=== PATIENT | female | born 1975 | race American Indian/Alaskan Native ===

== ENCOUNTER 2016-09-25 14:21 | Emergency (ER) | payer MEDICARE, OTHER ==
[2016-09-25 14:22] VITALS: BMI 40.7
--- NOTE | 2016-09-26 09:07 | CP.PCM.CON ---
History of Present Illness - History of Present Illness History of Present Illness: 41 y/o female seen at bedside in ED 11 days s/p left foot hammertoe repair of the 2nd digit and hallux IPJ arthrodesis. Pt states that she is having a lot of pain in her foot. Pt states that she had about 8 surgeries in her left foot previously. Pt state that she is always in pain and feels numbness, tingling and shooting type of pain. Pt states that she is currently taking oxycodone for her pain in her left foot. Pt states that she missed her 1st post-op appointment. Pt states that Dr. Chapman asked her to come to the ED yesterday afternoon. Pt denies of any trauma to the foot recently. PMHx: Heart attack x 2, lupus, HTN, pre-diabetic, Anemia, Asthma, OA, Partial ACL tear of left leg. PSHx: lymph nodes removed from behind both her ears and throat. D+C in the past and uterine fibroid removals. Cardiac catherization x 2 (mar 2011 and July 2010) with stent placed. Previous broken tib-fib of left lower extremity with jean carlos placement 2013 after miss step. Allergies: Nitroglycerine, Seafood Review of Systems - Constitutional Constitutional: As Per HPI Past Patient History - Infectious Disease Hx of Infectious Diseases: None - Past Medical History & Family History Past Medical History?: Yes - Past Social History Smoking Status: Never Smoked - CARDIAC Hx Cardiac Disorders: Yes Hx Angina: Yes Hx Circulatory Problems: Yes Hx Heart Attack: Yes (IN 2010 AND 2011) Hx Hypercholesterolemia: Yes Hx Hypertension: Yes Hx Peripheral Edema: Yes (left leg) Other/Comment: Myocardiovascular disease - PULMONARY Hx Respiratory Disorders: Yes Hx Asthma: Yes - NEUROLOGICAL Hx Neurological Disorder: Yes Hx Transient Ischemic Attacks (TIA): Yes (10 years ago) - HEENT Hx HEENT Problems: Yes (seasonal allergies) - RENAL Hx Chronic Kidney Disease: No - ENDOCRINE/METABOLIC Hx Endocrine Disorders: Yes Hx Diabetes Mellitus Type 2: Yes (NOT ON ANY MEDICINE) Hx Systemic Lupus Erythematosus: Yes - HEMATOLOGICAL/ONCOLOGICAL Hx Blood Disorders: Yes Hx Anemia: Yes Hx Blood Transfusions: Yes Hx Blood Transfusion Reaction: No - INTEGUMENTARY Hx Dermatological Problems: No - MUSCULOSKELETAL/RHEUMATOLOGICAL Hx Musculoskeletal Disorders: Yes Hx Arthritis: Yes Hx Back Pain: Yes Hx Degenerative Joint Disease: Yes Hx Fractures: Yes (left tibia fibula ankle replacement left) Hx Herniated Disk: Yes (LUMBAR-EPIDURALS DONE-LAST MAY 2015) Other/Comment: PARTIAL ACL LEFT KNEE-SYNOVOSIS LEFT KNEE-NO SURGERY DONE - GASTROINTESTINAL Hx Gastrointestinal Disorders: No - GENITOURINARY/GYNECOLOGICAL Hx Genitourinary Disorders: Yes Hx Incontinence: Yes (bladder lift) Hx Reproductive Disorders: Yes Other/Comment: CYST ON OVARIES REMOVED. FIBROID IN UTERUS REMOVED - PSYCHIATRIC Hx Psychophysiologic Disorder: Yes Hx Anxiety: Yes - SURGICAL HISTORY Hx Surgeries: Yes Hx Cardiac Catheterization: Yes (may 2015) Hx Dilation and Curettage: Yes (APR 2014) Hx Joint Replacement: Yes (left ankle) Hx Open Reduction Internal Fixation: Yes (LEFT TIBIA FIBULA ) Hx Tubal Ligation: Yes Other/Comment: I/D LEFT ANKLE WOUND, EXC CYSTS NECK SCALP EAR, LAPAROSCOPIC REMOVAL UTERINE FIBROIDS. achilles tendo lengthening - ANESTHESIA Hx Anesthesia: Yes Hx Anesthesia Reactions: Yes (nausea) Hx Malignant Hyperthermia: No Meds Allergies/Adverse Reactions: Allergies Allergy/AdvReac Type Severity Reaction Status Date / Time almond Allergy Intermediate ITCHING Verified 06/07/16 12:33 nitroglycerin Allergy Intermediate VOMITING Verified 06/07/16 12:33 AND ITCHING shellfish derived Allergy Intermediate SWELLING Verified 06/07/16 12:33 strawberry Allergy Intermediate ITCHING Verified 06/07/16 12:33 CAT HAIR Allergy Intermediate ITCHING Uncoded 06/07/16 12:33 Dog Allergy Intermediate ITCHING Uncoded 06/07/16 12:33 dust mites Allergy Intermediate ITCHING Uncoded 06/07/16 12:33 FRINGE TREE Allergy Intermediate ITCHING Uncoded 06/07/16 12:33 House Dust Allergy Intermediate ITCHING Uncoded 06/07/16 12:33 peas Allergy Intermediate ITCHING Uncoded 06/07/16 12:33 SHORT RAGWEED Allergy Intermediate ITCHING Uncoded 06/07/16 12:33 Physical Exam - Constitutional Appears: Well, Non-toxic, No Acute Distress - Extremities Exam Additional comments: VASC: DP/PT pulses are palpable b/l, BARREL RIFLER: < 3 sec x 10, TG: warm to cool, mild non-pitting edema noted DERM: surgical site is coapted with no dehiscence, sutures are intact, no open lesion, K-wire in the 2nd digit is intact, no erythema, no active drainage, no malodor, no active signs of infection noted NEURO: Grossly diminished ORTHO: Tenderness on palpation of surgical site as well as left foot - Neurological Exam Neurological exam: Alert, Oriented x3 - Psychiatric Exam Psychiatric exam: Normal Affect, Normal Mood Assessment & Plan - Assessment and Plan (Free Text) Assessment: 41 y/o female seen at bedside in ED 11 days s/p left foot hammertoe repair of the 2nd digit and hallux IPJ arthrodesis. Plan: Pt evaluated and chart reviewed Pt discussed in details with attending Dr. Chapman Surgical site cleaned with saline and dressed with triple abx, gauze, and kurlix Pt educated to weightbear to L foot in surgical shoe Pt given PO abx as per ED Pt educated to follow up with Dr. Chapman in her clinic on Tuesday Pt demonstrated verbal understanding - Date & Time Date: 09/25/16 Time: 15:00
--- NOTE | 2016-09-27 16:51 | RAD ---
PROCEDURE: Left ankle dated the 09/25/2016 HISTORY: Trauma COMPARISON: Comparison made with prior radiographs left ankle 12/01/2015 FINDINGS: BONES: The current study re- demonstrates left ankle arthroplasty. Metallic prostheses appear intact and remain satisfactorily aligned. There is a less than 2 mm gap between the distal tibial component and the distal tibial bone margin which at this time is not felt to represent loosening or infection. Re- demonstrated are deformities of the fibula as well as distal fibula likely old healed fractures. There appears to be incomplete fusion of the distal tibia and fibula. . Residual screw holes felt be present traversing the tibia metaphysis of chest cephalad to the fixation hardware. Posterior calcaneal enthesophyte. JOINTS: As above SOFT TISSUES: Mild medial soft tissue swelling. OTHER FINDINGS: None. IMPRESSION: Stable postoperative changes of left ankle arthroplasty as described. No evidence of loosening or infection. . There may be some mild medial soft tissue swelling
--- NOTE | 2016-09-27 17:01 | RAD ---
PROCEDURE: Left foot dated 09/25/2016. History: Trauma. Three standard views left foot performed HISTORY: TRAUMA COMPARISON: Correlation made with concurrent radiographs of the left ankle. Comparison also made with prior radiographs of the left foot dated 12/01/2015. FINDINGS: BONES: Re- demonstrated are postoperative changes of ankle arthroplasty which have been described in detail on concurrent ankle radiograph report. . There also has been interval resection of the distal margins of the 1st and 2nd proximal phalanges and bases of the distal phalanx great toe with compression screw traversing and fusing the distal and proximal phalanges. Surrounding soft tissue swelling. . K-wire extends through the distal middle and proximal phalanges of the 2nd digit with surrounding soft tissue swelling. JOINTS: Mild degenerative changes of the 1st MTP joint. . SOFT TISSUES: Normal. OTHER FINDINGS: None. IMPRESSION: Postoperative changes of the 1st and 2nd toes with surrounding soft tissue swelling as described. Total arthroplasty left ankle ; see concurrent ankle report for additional details
== END 2016-09-25 17:15 | disposition home or self-care (01) ==
LOC: H.ER 14:21
DX: M79.672 Pain in left foot (principal); I10 Essential (primary) hypertension; E78.00 Pure hypercholesterolemia, unspecified; M32.9 Systemic lupus erythematosus, unspecified; E11.9 Type 2 diabetes mellitus without complications

== ENCOUNTER 2016-12-14 20:52 | Emergency (ER) | payer MEDICARE, OTHER ==
[2016-12-14 20:52] VITALS: BMI 40.7
[2016-12-14 21:06] VITALS: RESP 16; TEMP 98.5
--- NOTE | 2016-12-14 21:25 | ED PDOC ---
Lower Extremity Pain/Injury Time Seen by Provider: 12/14/16 21:10 Chief Complaint (Nursing): Lower Extremity Problem/Injury Chief Complaint (Provider): ankle pain History Per: Patient History/Exam Limitations: no limitations Additional Complaint(s): 41yo F in Ed for eval of left ankle injury sustained today after injuring it on a toy chest-states that she noted acute swelling. Pt state she normally has decreased sensation to foot due to neuropathy. Pt has had surgeries to ankle in 2017. Pt states that she took oxycotcin prior to ER arrival. Pt is a pt of MD Ari who advised pt to come to ER. Pt denies SOB, CP, dizziness, weakness epigastric pain - Ankle/Foot Feet: 1 - swelling - Risk Factors DVT Risk Factors: Pos: None Past Medical History Reviewed: Historical Data, Nursing Documentation, Vital Signs Vital Signs: Last Vital Signs Temp 98.5 F 12/14/16 21:01 Pulse 86 12/14/16 21:01 Resp 16 12/14/16 21:01 BP 205/117 H 12/14/16 21:01 Pulse Ox 100 12/14/16 21:01 - Medical History PMH: Anemia, Anxiety, Arthritis, Asthma, Fractures (left tibia fibula ankle replacement left), HTN, Hypercholesterolemia, Peripheral Edema (left leg), TIA ( 10 years ago) Denies: Chronic Kidney Disease - Family History Family History: States: Unknown Family Hx - Immunization History Hx Tetanus Toxoid Vaccination: Yes Hx Influenza Vaccination: Yes (01/2015) Hx Pneumococcal Vaccination: Yes - Home Medications Home Medications: Ambulatory Orders Medication Instructions Recorded Alprazolam [Alprazolam Xr] 2 mg PO BID #0 07/02/14 Cetirizine HCl [Zyrtec Allergy] 10 mg PO HS #0 07/02/14 Clonidine HCl [Clonidine HCl ER] 0.5 mg PO TID 07/02/14 Clopidogrel [Plavix] 75 mg PO DAILY 07/02/14 Albuterol/Ipratropium [Combivent 1 puff IH DAILY 07/09/15 Respimat] Aspirin [[place] Aspirin] 81 mg PO DAILY 07/09/15 Cholecalciferol (Vitamin D3) 50,000 unit PO QWK 07/09/15 [Vitamin D3] Furosemide [Lasix] 40 mg PO BID 07/09/15 Gabapentin 600 mg PO TID 07/09/15 Losartan Potassium [Cozaar] 100 mg PO DAILY 07/09/15 Omeprazole [Prilosec] 20 mg PO DAILY 07/09/15 Atenolol [Tenormin] 50 mg PO BID #0 07/16/15 Labetalol [Trandate] 200 mg PO BID #20 tab 09/17/15 Albuterol HFA [Ventolin HFA 90 2 puff IH QID PRN 10/16/15 mcg/actuation (8 g)] amLODIPine [Norvasc] 10 mg PO DAILY 10/11/16 Albuterol HFA [Ventolin HFA 90 2 puff IH Q4 PRN 10/12/16 mcg/actuation (8 g)] Albuterol/Ipratropium [Combivent 1 puff IH 10/12/16 Respimat] Diltiazem HCl [Cardizem] 30 mg PO DAILY 10/12/16 Docusate Sodium 100 mg PO BID 10/12/16 Epinephrine [Epipen] 0.3 mg IJ PRN PRN 10/12/16 Multivitamin [Multi-Vitamin Daily] 1 each PO DAILY 10/12/16 Ondansetron [Zofran] 4 mg PO PRN PRN 10/12/16 Oxycodone HCl [Oxycodone HCl] 5 mg PO PRN PRN 10/12/16 metFORMIN [glucOPHAGE] 500 mg PO PRN PRN 10/12/16 predniSONE [predniSONE Tab] 5 mg PO PRN PRN 10/12/16 tiZANidine [Zanaflex] 4 mg PO BID 10/12/16 - Allergies Allergies/Adverse Reactions: Allergies Allergy/AdvReac Type Severity Reaction Status Date / Time almond Allergy Intermediate ITCHING Verified 06/07/16 12:33 nitroglycerin Allergy Intermediate VOMITING Verified 06/07/16 12:33 AND ITCHING shellfish derived Allergy Intermediate SWELLING Verified 06/07/16 12:33 strawberry Allergy Intermediate ITCHING Verified 06/07/16 12:33 CAT HAIR Allergy Intermediate ITCHING Uncoded 06/07/16 12:33 Dog Allergy Intermediate ITCHING Uncoded 06/07/16 12:33 dust mites Allergy Intermediate ITCHING Uncoded 06/07/16 12:33 FRINGE TREE Allergy Intermediate ITCHING Uncoded 06/07/16 12:33 House Dust Allergy Intermediate ITCHING Uncoded 06/07/16 12:33 peas Allergy Intermediate ITCHING Uncoded 06/07/16 12:33 SHORT RAGWEED Allergy Intermediate ITCHING Uncoded 06/07/16 12:33 Wells Criteria for PE - Wells Criteria for Pulmonary Embolism Clinical Signs and Symptoms of DVT: No P.E is #1 Diagnosis, or Equally Likely: No Heart Rate >100: No Immobilization at least 3 days;Surgery previous 4 weeks: No Previous, objectively diagnosed PE or DVT: No Hemoptysis: No Malignancy w/treatment within 6 months, or palliative: No Total Score: 0 Review of Systems ROS Statement: Except As Marked, All Systems Reviewed And Found Negative Musculoskeletal: Positive for: Foot Pain Physical Exam - Reviewed Nursing Documentation Reviewed: Yes Vital Signs Reviewed: Yes - Physical Exam Appears: Positive for: Non-toxic, No Acute Distress, Uncomfortable Head Exam: Positive for: ATRAUMATIC, NORMAL INSPECTION, NORMOCEPHALIC Skin: Positive for: Normal Color, Warm, DRY Cardiovascular/Chest: Positive for: Regular Rate, Rhythm Respiratory: Positive for: CNT, Normal Breath Sounds Extremity: Positive for: Other (lef tfoot: swelling noted. no erythema noted. ) Neurologic/Psych: Positive for: Alert, Oriented - ECG O2 Sat by Pulse Oximetry: 100 - Radiology X-Ray: Interpreted by Me (hardware in place. no acute fractures noted. ) Medical Decision Making Medical Decision Making: pt offered ultram, declined. states only Dilaudid IV works. [facility] reviewed: pt has hx of narcotic use Rx by MD Ari pt given morphine IV 2mg initially to help with pain, considering pt took narcotic prior to ED arrival. Pt with normal HR and presents very relaxed and not in acute distress. request for Dilaudid does not match presenting need for pain control. podiatry consulted consulted MD Ari pt given Kraus compression and have f/u with pmd. BP improving while in ER. however still elevated. Pt will be given clondine 2mg and re-eval. Pt not exhibiting any signs of CVA like symptoms-no CP, SOB, BL[place], vision changes , UE weakness/numbness. Pt BP still elevated diastolic and and worsened systolic will give morphine 4mg. pt now c/o of nausea will order zofran. again, pt is calm not in acute distress at this time. Pt will have podiatry f.u on . BP improved to 163/73 Vital Signs - 24 hr 12/14/16 12/14/16 12/14/16 21:01 21:48 23:10 Temperature 98.5 F Pulse Rate 86 90 90 Respiratory 16 16 16 Rate Blood Pressure 205/117 H 191/109 H 181/112 H O2 Sat by Pulse 100 98 Oximetry 12/14/16 12/14/16 23:16 23:30 Temperature Pulse Rate 84 Respiratory 16 Rate Blood Pressure 163/73 H O2 Sat by Pulse 100 100 Oximetry Disposition - Clinical Impression Clinical Impression: Ankle pain - Patient ED Disposition Is Patient to be Admitted: No Counseled Patient/Family Regarding: Studies Performed, Diagnosis, Need For Followup - Disposition Referrals: Elena Chapman DPM [Staff Provider] - Disposition: Routine/Home Disposition Time: 23:41 Condition: STABLE Instructions: Foot Sprain (ED) Forms: [facility] ([place]z)
--- NOTE | 2016-12-14 22:04 | CP.PCM.CON ---
History of Present Illness - History of Present Illness History of Present Illness: 41 y/o female with extensive PMHx seen at bedside in ED for swelling and pain in her left foot and ankle. Patient states that she hit her foot/ankle against a dresser this evening when she was walking. Patient states that she does not have much sensation to her left lower extremity so she did not feel it a lot but did feet a shooting pain traveling up the leg after she hit it. Patient states that she feel pulsating, numbness, tingling type of pain surrounding the ankle as well as the bottom of her foot. Patient states has had about 8-9 surgeries on the left side. Patient states that she is currently on oxycodone to manage her pain. Patient states that she took one oxycodone prior to coming to the ER today. Patient denies of any other pedal complain today. Patient denies of any recent F/N/V/C/SOB/CP. PMHx: Heart attack x 2, lupus, HTN, pre-diabetic, Anemia, Asthma, OA, Partial ACL tear of left leg. PSHx: lymph nodes removed from behind both her ears and throat. D+C in the past and uterine fibroid removals. Cardiac catherization x 2 (mar 2011 and July 2010) with stent placed. Previous broken tib-fib of left lower extremity with jean carlos placement 2012 after miss step. Allergies: Nitroglycerine, Seafood Review of Systems - Constitutional Constitutional: As Per HPI Past Patient History - Infectious Disease Hx of Infectious Diseases: None - Past Medical History & Family History Past Medical History?: Yes - Past Social History Smoking Status: Never Smoked - CARDIAC Hx Hypercholesterolemia: Yes Hx Hypertension: Yes Hx Peripheral Edema: Yes (left leg) - PULMONARY Hx Asthma: Yes - NEUROLOGICAL Hx Transient Ischemic Attacks (TIA): Yes (10 years ago) - HEENT Hx HEENT Problems: Yes (seasonal allergies) - RENAL Hx Chronic Kidney Disease: No - ENDOCRINE/METABOLIC Hx Endocrine Disorders: Yes Hx Diabetes Mellitus Type 2: Yes (NOT ON ANY MEDICINE) Hx Systemic Lupus Erythematosus: Yes - HEMATOLOGICAL/ONCOLOGICAL Hx Anemia: Yes - INTEGUMENTARY Hx Dermatological Problems: No - MUSCULOSKELETAL/RHEUMATOLOGICAL Hx Arthritis: Yes Hx Fractures: Yes (left tibia fibula ankle replacement left) - GENITOURINARY/GYNECOLOGICAL Hx Genitourinary Disorders: Yes Hx Incontinence: Yes (bladder lift) Hx Reproductive Disorders: Yes Other/Comment: CYST ON OVARIES REMOVED. FIBROID IN UTERUS REMOVED - PSYCHIATRIC Hx Anxiety: Yes - SURGICAL HISTORY Hx Surgeries: Yes Hx Cardiac Catheterization: Yes (may 2015) Hx Dilation and Curettage: Yes (APR 2014) Hx Joint Replacement: Yes (left ankle) Hx Open Reduction Internal Fixation: Yes (LEFT TIBIA FIBULA ) Hx Tubal Ligation: Yes Other/Comment: I/D LEFT ANKLE WOUND, EXC CYSTS NECK SCALP EAR, LAPAROSCOPIC REMOVAL UTERINE FIBROIDS. achilles tendo lengthening - ANESTHESIA Hx Anesthesia: Yes Hx Anesthesia Reactions: Yes (nausea) Hx Malignant Hyperthermia: No Meds Allergies/Adverse Reactions: Allergies Allergy/AdvReac Type Severity Reaction Status Date / Time almond Allergy Intermediate ITCHING Verified 06/07/16 12:33 nitroglycerin Allergy Intermediate VOMITING Verified 06/07/16 12:33 AND ITCHING shellfish derived Allergy Intermediate SWELLING Verified 06/07/16 12:33 strawberry Allergy Intermediate ITCHING Verified 06/07/16 12:33 CAT HAIR Allergy Intermediate ITCHING Uncoded 06/07/16 12:33 Dog Allergy Intermediate ITCHING Uncoded 06/07/16 12:33 dust mites Allergy Intermediate ITCHING Uncoded 06/07/16 12:33 FRINGE TREE Allergy Intermediate ITCHING Uncoded 06/07/16 12:33 House Dust Allergy Intermediate ITCHING Uncoded 06/07/16 12:33 peas Allergy Intermediate ITCHING Uncoded 06/07/16 12:33 SHORT RAGWEED Allergy Intermediate ITCHING Uncoded 06/07/16 12:33 Physical Exam - Constitutional Appears: Well, Non-toxic, No Acute Distress - Extremities Exam Additional comments: VASC: DP/PT pulses are palpable b/l, AIR BAG BUFFER: < 3 sec x 10, Temp gradient: warm to cool, Non-pitting edema noted surrounding the ankle joint on the medial and lateral aspect of the left lower extremity DERM: No open lesions, surgical scars noted from the previous surgeries, no erythema, no active signs of infection noted NEURO: Protective sensation grossly diminished bilaterally ORTHO: Diminished active and passive ROM at the ankle joint during DF, PF, Inversion and Eversion. Pain present diffusly surrounding the ankle joint as well as dorsolateral and dorsomedial aspect of the left foot, MMT: 2/5 on LLE and 5/5 on RLE, pain present diffusly surrounding the ankle joint during active and passive ROM - Neurological Exam Neurological exam: Alert, Oriented x3 - Psychiatric Exam Psychiatric exam: Normal Affect, Normal Mood Results - Vital Signs Recent Vital Signs: Last Vital Signs Temp 98.5 F 12/14/16 21:01 Pulse 90 12/14/16 21:48 Resp 16 12/14/16 21:48 BP 191/109 H 12/14/16 21:48 Pulse Ox 100 12/14/16 21:39 Assessment & Plan - Assessment and Plan (Free Text) Assessment: 41 y/o female seen at bedside in ED for swelling, numbness, tingling type pain on her left ankle secondary to a traumatic incident Plan: Pt evaluated and chart reviewed Pt discussed in details with attending Dr. Ari Vu reviewed - afebrile X-rays of the foot and ankle reviewed: - Hardware in good alignment, no signs of acute fracture, reggie articulation in good alignment Patient placed in a Kraus compression dressing and in a surgical shoe to the LLE Pt educated to weightbear to L foot in surgical shoe Pt educated to follow up with Dr. Chapman in her clinic on Pt demonstrated verbal understanding Thank you for the podiatry consult - Date & Time Date: 12/14/16 Time: 22:33
[2016-12-14 23:16] VITALS: O2SAT 100
[2016-12-14 23:31] VITALS: BP 163/73; PULSE 84
--- NOTE | 2016-12-15 14:24 | RAD ---
PROCEDURE: Left Ankle Radiographs. HISTORY: Ankle injury. COMPARISON: 09/25/2016. FINDINGS: BONES: Radiographic stability noted with respect to left ankle arthroplasty. No evidence of loosening of joint components. Stable findings more proximally in the distal tibia and fibula. Small Achilles tendon insertion spur. JOINTS: No significant interval change compared to the prior examination(s). SOFT TISSUES: Normal. OTHER FINDINGS: None. IMPRESSION: No significant interval change compared to the prior examination(s).
--- NOTE | 2016-12-15 14:56 | RAD ---
PROCEDURE: Left Foot Radiographs. HISTORY: foot pain COMPARISON: 09/25/2016 FINDINGS: BONES: Status post removal of K-wire 2nd digit. Stable position of partially fenestrated screw 1st digit. No evidence of orthopedic hardware failure. JOINTS: Multiple hammertoe deformities again identified. SOFT TISSUES: Normal. OTHER FINDINGS: Incompletely visualized hardware related to left ankle arthrodesis. IMPRESSION: Satisfactory postoperative status.
== END 2016-12-14 23:42 | disposition home or self-care (01) ==
LOC: H.ER 20:52
DX: M25.571 Pain in right ankle and joints of right foot (principal); W22.03XA Walked into furniture, initial encounter; I10 Essential (primary) hypertension; J45.909 Unspecified asthma, uncomplicated; Z86.73 Personal history of transient ischemic attack (TIA), and cerebral infarction without residual deficits
CPT/HCPCS: 73610; 73630; 81025; 96374; 96375; 96376; 99284; J2270; J2405